=== PATIENT | male | born 1940 | race Caucasian/White ===

== ENCOUNTER 2017-05-11 09:15 | Inpatient (IN) | payer OTHER ==
[~2017-05-11] VITALS: Ht 172.7 cm; Wt 85.0 kg
[~2017-05-11 09:15] MED LIST: ASPI-664 PO; ATOR20TA38 PO; METO25TA7 PO; OMEP20CA16 PO; PANT40TA4 PO; TAMS-14 PO
[2017-05-11] MEDS ORDERED: NITROGLYCERIN 2% 1 GM OINT PKT TD STA (09:40)
[2017-05-11] MEDS ORDERED: ASPIRIN 325 MG TAB PO STA (09:40)
[2017-05-11 10:11] LABS: BASOPHILS % 0.3 % (0.0-2.0); EOSINOPHILS # 0.1 10^3/ul (0.0-0.5); EOSINOPHILS % 0.4 % (0.0-7.0); HEMATOCRIT 41.3 % (42.0-52.0); HEMOGLOBIN 13.9 g/dl (14.0-18.0); LYMPHOCYTES # 1.1 10^3/ul (0.8-2.9); LYMPHOCYTES % 8.8 % (15.0-51.0); MEAN CORPUSCULAR HEMOGLOBIN 30.3 pg (29.0-33.0); MEAN CORPUSCULAR HGB CONC 33.7 g/dl (32.0-37.0); MONOCYTE # 0.8 10^3/ul (0.3-0.9); MONOCYTES % 6.4 % (0.0-11.0); NEUTROPHIL # 10.6 10^3/ul (1.6-7.5); NEUTROPHILS % 82.2 % (39.0-77.0); PLATELET COUNT 230 10^3/UL (140-415); RED BLOOD COUNT 4.59 10^6/ul (4.70-6.10); RED CELL DISTRIBUTION WIDTH 15.7 % (11.5-14.5); WHITE BLOOD COUNT 12.9 10^3/ul (4.8-10.8)
[2017-05-11 10:26] LABS: INR 0.99; PROTIME 13.1 Sec (12.2-14.2)
[2017-05-11 10:27] LABS: PARTIAL THROMBOPLASTIN TIME 30.2 Sec (25.0-35.0)
[2017-05-11 10:28] LABS: ALANINE AMINOTRANSFERASE 90 IU/L (13-69); ALBUMIN 3.9 g/dl (3.3-4.9); ALBUMIN/GLOBULIN RATIO 1.44; ALKALINE PHOSPHATASE 76 IU/L (42-121); ANION GAP 14 (8-16); ASPARTATE AMINO TRANSFERASE 44 IU/L (15-46); BILIRUBIN,INDIRECT 0.6 mg/dl (0-1.1); BILIRUBIN,TOTAL 0.6 mg/dl (0.2-1.3); BLOOD UREA NITROGEN 25 mg/dl (7-20); CALCIUM 8.6 mg/dl (8.4-10.2); CARBON DIOXIDE 24 mmol/L (21-31); CHLORIDE 96 mmol/L (97-110); CREATININE 0.91 mg/dl (0.61-1.24); GLUCOSE 160 mg/dl (70-220); POTASSIUM 4.7 mmol/L (3.5-5.1); SODIUM 129 mmol/L (135-144); TOTAL PROTEIN 6.6 g/dl (6.1-8.1)
[2017-05-11 10:40] LABS: B-TYPE NATRIURETIC PEPTIDE 5670 PG/ML (0-450)
[2017-05-11 10:43] LABS: TROPONIN-I < 0.012 ng/ml (0.00-0.12)
--- NOTE | 2017-05-11 10:52 | RADRPT ---
PROCEDURE: XR Chest. CLINICAL INDICATION: Chest pain TECHNIQUE: Single frontal view of the chest was obtained COMPARISON: 02/16/2014 FINDINGS: Enlargement of the cardiac silhouette is again seen. Calcification in the aortic arch. There is minimal prominence of the lung interstitium likely minimal chronic changes. ECG leads proje cted over the chest. Patchy densities at lung bases could be secondary to atelectasis and/or infiltr ates. There is no definite pleural effusion or pneumothorax. IMPRESSION: Enlargement of cardiac silhouette again seen. Patchy densities at lung bases could be secondary to atelectasis and/or infiltrates. Please see above. RPTAT: HJES .Teodoro Camilo MD, Date Time Electronically viewed and signed by .Teodoro Camilo MD, on 05/11/2017 10:52 .S/
--- NOTE | 2017-05-11 12:00 | ERA ---
ER Documentation Chief Complaint Date/Time DATE: 05/11/17 TIME: 11:55 Chief Complaint chest pain x 8 days HPI This is 76-year-old male is complaining of chest pain for the past week. He says when he walks he gets substernal chest pressure that radiates up his left neck and down his left arm with some shortness of breath. He said over the past week is getting more frequent and lasting longer. He states he is here today because the pain is chest not going away when he is resting like he usually would over the past week. No cough fever back pain no abdominal pain no syncope palpitations no history of any cardiac issues in the past including arrhythmia. Currently he says his chest pain-free. ROS All systems reviewed and are negative except as per history of present illness. Medications Home Meds Reported Medications Omeprazole* (Omeprazole*) 20 Mg Capsule.dr, 20 MG PO DAILY 02/16/14 Tamsulosin Hcl* (Flomax*) 0.4 Mg Cap.er.24h, 0.4 MG PO HS, CAP 02/16/14 Pantoprazole (Protonix) 40 Mg Tabec, 40 MG PO DAILY, TAB 02/16/14 Metoprolol Succinate* (Toprol XL*) 25 Mg Tab.sr.24h, 25 MG PO DAILY, TAB 02/16/14 Aspirin* (Aspirin* EC) 81 Mg Tablet.dr, 81 MG PO DAILY 02/16/14 Atorvastatin Calcium* (Atorvastatin Calcium*) 20 Mg Tablet, 20 MG PO DAILY, TAB 02/16/14 Allergies Allergies: Coded Allergies: No Known Allergy (Verified , 02/16/14) PMhx/Soc History of Surgery: Yes (2 HERNIA SURGERIES, 1 HEMORRHOID LAST YEAR, angiogram) Anesthesia Reaction: No Hx Neurological Disorder: No Hx Respiratory Disorders: No Hx Cardiac Disorders: Yes (HTN, HYPERCHOLESTEROLEMIA, ANGINA, ) Hx Psychiatric Problems: No Hx Miscellaneous Medical Probl: Yes (pre dm) Hx Alcohol Use: No Hx Substance Use: No Hx Tobacco Use: No Smoking Status: Never smoker FmHx Family History: No coronary disease Physical Exam Vitals Vital Signs Date Time Temp Pulse Resp B/P Pulse Ox O2 Delivery O2 Flow Rate FiO2 05/11/17 09:59 76 20 146/90 97 Room Air 05/11/17 09:20 97.9 78 20 174/99 95 Physical Exam Const: Well-developed, well-nourished Head: Atraumatic, normocephalic Eyes: Normal Conjunctiva, PERRLA, EOMI, normal sclera, no nystagmus ENT: Normal External Ears, Nose and Mouth, moist mucus membranes. Neck: Full range of motion. No meningismus, no lymphadenopathy. Resp: Clear to auscultation bilaterally in the upper lung isbell, lower lung isbell have rhonchi Cardio: Irregular rhythm, , no murmurs, S1 S2 present Abd: Soft, non tender x 4, non distended. Normal bowel sounds, no guarding or rebound, no pulsitile abdominal masses or bruits Skin: No petechiae or rashes, no ecchymosis , no maculopapular rash Back: No midline or flank tenderness Ext: No cyanosis, or edema, FROM x 4, normal inspection, neurovascularly intact x 4 Neur: Awake and alert, STR 5/5 x 4, sensation intact x 4, no focal findings, cerebellum intact Psych: Normal Mood and Affect Result Diagram: 05/11/1795405/11/17 0955 Results 24 hrs Laboratory Tests Test 05/11/17 09:55 White Blood Count 12.910^3/ul Red Blood Count 4.5910^6/ul Hemoglobin 13.9g/dl Hematocrit 41.3% Mean Corpuscular Volume 90.0fl Mean Corpuscular Hemoglobin 30.3pg Mean Corpuscular Hemoglobin Concent 33.7g/dl Red Cell Distribution Width 15.7% Platelet Count 87393^3/UL Mean Platelet Volume 10.0fl Neutrophils % 82.2% Lymphocytes % 8.8% Monocytes % 6.4% Eosinophils % 0.4% Basophils % 0.3% Nucleated Red Blood Cells % 0.0/100WBC Neutrophils # 10.610^3/ul Lymphocytes # 1.110^3/ul Monocytes # 0.810^3/ul Eosinophils # 0.110^3/ul Basophils # 0.010^3/ul Nucleated Red Blood Cells # 0.010^3/ul Prothrombin Time 13.1Sec Prothrombin Time Ratio 1.0 INR International Normalized Ratio 0.99 Activated Partial Thromboplast Time 30.2Sec Sodium Level 129mmol/L Potassium Level 4.7mmol/L Chloride Level 96mmol/L Carbon Dioxide Level 24mmol/L Anion Gap 14 Blood Urea Nitrogen 25mg/dl Creatinine 0.91mg/dl Glucose Level 160mg/dl Calcium Level 8.6mg/dl Total Bilirubin 0.6mg/dl Direct Bilirubin 0.00mg/dl Indirect Bilirubin 0.6mg/dl Aspartate Amino Transf (AST/SGOT) 44IU/L Alanine Aminotransferase (ALT/SGPT) 90IU/L Alkaline Phosphatase 76IU/L Troponin I < 0.012ng/ml B-Type Natriuretic Peptide 5670PG/ML Total Protein 6.6g/dl Albumin 3.9g/dl Globulin 2.70g/dl Albumin/Globulin Ratio 1.44 Current Medications Medications (Trade) Dose Ordered Sig/Sharmila Route PRN Reason Start Time Stop Time Status Last Admin Dose Admin Aspirin (Aspirin) 325 mg ONCE STAT PO 05/11/17 09:40 05/11/17 09:41 DC 05/11/17 09:52 Nitroglycerin (Nitroglycerin 2% Oint) 1 inch ONCE STAT TD 05/11/17 09:40 05/11/17 09:41 DC 05/11/17 09:52 Procedures/MDM EKG: Rate/Rhythm: Atrial fibrillation with a heart rate of 79, right axis deviation, inverted T waves in leads V4 5 and 6 QRS, ST, QT: NORMAL TX, QRS, QT] Impression: Atrial fibrillation PROCEDURE: XR Chest. CLINICAL INDICATION: Chest pain TECHNIQUE: Single frontal view of the chest was obtained COMPARISON: 02/16/2014 FINDINGS: Enlargement of the cardiac silhouette is again seen. Calcification in the aortic arch. There is minimal prominence of the lung interstitium likely minimal chronic changes. ECG leads projected over the chest. Patchy densities at lung bases could be secondary to atelectasis and/or infiltrates. There is no definite pleural effusion or pneumothorax. IMPRESSION: Enlargement of cardiac silhouette again seen. Patchy densities at lung bases could be secondary to atelectasis and/or infiltrates. Please see above. RPTAT: HJES .Teodoro Camilo MD, MD Date Time Electronically viewed and signed by .Teodoro Camilo MD, MD on 05/11/2017 10:52 .S/ CC: MARGOTH UREÑA DO Patient to have new onset A. fib will cover with 1 dose of Lovenox subcu Patient's symptoms are concerning for cardiac cause will require inpatient workup and continuous monitoring. Further w/u for ischemia, arrhythmia, PE or dissection will be deferred to the inpatient team. Accepting Care Team: Current data and ongoing care discussed. Time: Time of admission Primary Provider: [XOXOXO] Consulting: [XOXOXO] Outstanding Data: none Departure Diagnosis: Primary Impression: Chest pain Qualified Code: R07.9 - Chest pain, unspecified type Additional Impression: Atrial fibrillation Qualified Code: I48.91 - Atrial fibrillation, unspecified type Condition: Stable MARGOTH UREÑA DO May 11, 2017 12:00
[2017-05-11] MEDS ORDERED: ACETAMINOPHEN 325 MG TAB PO PRN (12:30)
[2017-05-11] MEDS ORDERED: ONDANSETRON 4 MG INJ IV PRN (12:30)
[2017-05-11] MEDS ORDERED: ENOXAPARIN 80 MG/0.8 ML SYG SC SCH (12:30)
[2017-05-11] MEDS ORDERED: FUROSEMIDE 40 MG INJ IV ONE (13:30)
[2017-05-11] MEDS ORDERED: METO50TA16 PO (13:40)
[2017-05-11] MEDS ORDERED: OLME1TAB5 PO (13:42)
[2017-05-11] MEDS ORDERED: INDO25CA25 PO (13:44)
[2017-05-11] MEDS ORDERED: SIMV20TA PO (13:44)
[2017-05-11] MEDS: LOSARTAN 25 MG TAB PO SCH (14:00)
--- NOTE | 2017-05-11 14:04 | HP ---
Date/Time of Note Date/Time of Note DATE: 05/11/17 TIME: 13:51 Assessment/Plan VTE Prophylaxis VTE Prophylaxis Intervention: LMWH Lines/Catheters IV Catheter Type (from Nrs): Saline Lock Assessment/Plan Chief Complaint/Hosp Course 76 yo male darion h/o hypertesnion and BPH who presents with subacute onset of asthma and exertional dyspnea. Bedside TTE shows likely reduced EF. EKG shows Atrial fibrillation with normal rate. Labs show hyponatremia. Symptoms concerning for angina and CHF Anginal: - This is not an ACS given chronic stable symptoms - Will start aspirin and statin - Cards consult for consideration of stress vs cath Acute systolic CHF exac: - Will initiated diurese now, 40 IV lasix. Only mildly overloaded on exam - Will confirm with formal TTE - Neurohormonal blockade pending assessment of EF New diagnosis of Atrial Fibrillation - Currently rate is in 70s so will hold off on BB for now - Will start Eliquis for AC Hypertension - He had been taking olmesartan/HCTZ combination pill prescribed in [place] as an outpatient which I will discontinue as will likely need more potent diuretic Hyponatremia: - Unclear etiology - Trend Na, should improve with diuresis - Check urine lytes BPH: - Continue flomax Problems: HPI/ROS Admit Date/Time Admit Date/Time Hx of Present Illness This is a 76-year-old male with a reported history of hypertension and BPH as well as to 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 Patient has recently arrived from [place] and his exact medical history is unclear. He describes over the last few weeks having developed chest pressure that occurs with exertion and radiates through his left arm. He also has developed symptomatic shortness of breath which mainly occurs during exertion but also occurs at rest when in supine. His orthopnea has developed causing him to sleep upright on 2 pillows. He stresses that these symptoms have gradually come about and are not acutely changed today. He recently established care with the PCP and was said to to visit a pediatric clinical nurse specialist however he having trouble with prior authorization so decided to come to the hospital. In the emergency room he was found to be in atrial fibrillation but he has never heard of this before. His daughter who is at bedside has noticed that he has become less active and appears to be more winded when he moves around the house or walks. He denies feeling palpitations or any chest pain at rest PMH/Family/Social Past Medical History Medical History: hypertension Past Surgical History Past Surgical Hx: noncontributory Family History Significant Family History: no pertinent family hx Social History Alcohol Use: none Smoking Status: Never smoker Drug Use: none Exam/Review of Systems Vital Signs Vitals Vital Signs Date Time Temp Pulse Resp B/P Pulse Ox O2 Delivery O2 Flow Rate FiO2 05/11/17 09:59 76 20 146/90 97 Room Air 05/11/17 09:20 97.9 Exam Exam On exam he appears well and comfortable he is an elderly man resting in bed in no distress. He is alert and oriented 3. His cardiac exam is notable for an irregular rhythm with a normal rates he has very elevated jugular venous distention to his ear. His pulmonary exam is notable for trace bibasilar crackles. His abdominal exam is slightly distended with positive hepatojugular reflux. His abdomen is nontender. There is trace edema in his bilateral lower extremities. BNP Laboratory Tests Test 05/11/17 09:55 White Blood Count 12.910^3/ul Red Blood Count 4.5910^6/ul Hemoglobin 13.9g/dl Hematocrit 41.3% Mean Corpuscular Volume 90.0fl Mean Corpuscular Hemoglobin 30.3pg Mean Corpuscular Hemoglobin Concent 33.7g/dl Red Cell Distribution Width 15.7% Platelet Count 69141^3/UL Mean Platelet Volume 10.0fl Neutrophils % 82.2% Lymphocytes % 8.8% Monocytes % 6.4% Eosinophils % 0.4% Basophils % 0.3% Nucleated Red Blood Cells % 0.0/100WBC Neutrophils # 10.610^3/ul Lymphocytes # 1.110^3/ul Monocytes # 0.810^3/ul Eosinophils # 0.110^3/ul Basophils # 0.010^3/ul Nucleated Red Blood Cells # 0.010^3/ul Prothrombin Time 13.1Sec Prothrombin Time Ratio 1.0 INR International Normalized Ratio 0.99 Activated Partial Thromboplast Time 30.2Sec Sodium Level 129mmol/L Potassium Level 4.7mmol/L Chloride Level 96mmol/L Carbon Dioxide Level 24mmol/L Anion Gap 14 Blood Urea Nitrogen 25mg/dl Creatinine 0.91mg/dl Glucose Level 160mg/dl Calcium Level 8.6mg/dl Total Bilirubin 0.6mg/dl Direct Bilirubin 0.00mg/dl Indirect Bilirubin 0.6mg/dl Aspartate Amino Transf (AST/SGOT) 44IU/L Alanine Aminotransferase (ALT/SGPT) 90IU/L Alkaline Phosphatase 76IU/L Troponin I < 0.012ng/ml B-Type Natriuretic Peptide 5670PG/ML Total Protein 6.6g/dl Albumin 3.9g/dl Globulin 2.70g/dl Albumin/Globulin Ratio 1.44 Current Medications Medications (Trade) Dose Ordered Sig/Sharmila Route PRN Reason Start Time Stop Time Status Last Admin Dose Admin Aspirin (Aspirin) 325 mg ONCE STAT PO 05/11/17 09:40 05/11/17 09:41 DC 05/11/17 09:52 325 MG Nitroglycerin (Nitroglycerin 2% Oint) 1 inch ONCE STAT TD 05/11/17 09:40 05/11/17 09:41 DC 05/11/17 09:52 1 INCH Enoxaparin Sodium (Lovenox) 80 mg ONCE SC 05/11/17 12:30 05/11/17 12:28 80 MG Ondansetron HCl (Zofran Inj) 4 mg ER BRIDGE PRN IV NAUSEA AND/OR VOMITING 05/11/17 12:30 05/12/17 12:29 Acetaminophen (Tylenol Tab) 650 mg ER BRIDGE PRN PO MILD PAIN/FEVER 05/11/17 12:30 05/12/17 12:29 Furosemide (Lasix) 40 mg ONCE ONCE IV 05/11/17 13:30 05/11/17 13:31 DC 05/11/17 13:19 40 MG Labs Result Diagram: 05/11/17 0955 05/11/17 0955 Medications Medications Current Medications Enoxaparin Sodium (Lovenox) 80 mg ONCE SC Last administered on 05/11/17t 12:28 ; Admin Dose 80 MG; Start 05/11/17 at 12:30 AMISHA LOAIZA MD May 11, 2017 14:01
--- NOTE | 2017-05-11 17:05 | RADRPT ---
Echocardiogram Report ADDENDUM Patient Name: MOHAMUD ESTRADA Gender: Male Date: 1940 Study Date: 11-May-2017 [place] Attendant: [facility] Location: -5 Ref. Physician: AMISHA LOAIZA Quality: Adequate Procedures: Transthoracic echocardiogram with complete 2D, M-Mode, and doppler examination. Indications: Congestive Heart Failure. 2D/M Mode Doppler Measurement Value Normal Ranges Measurement Value Normal Ranges LVIDd 2D 4.4 3.5 - 5.6 cm AV Peak Mason 1.1 m/sec LVIDs 2D 3.4 2.1 - 4.1 cm AV Peak PG 5.0 mmHg FS 2D 22.5 % LVOT Peak Mason 0.8 m/sec LVPWd 2D 1.5 0.6 - 1.1 cm LVOT Peak PG 3.0 mmHg IVSd 2D 1.5 0.6 - 1.1 cm MV E Peak Mason 0.7 m/sec IVS/LVPW 2D 1.0 AoR Diam 2D 2.6 2.0 - 3.7 cm LA/Ao 2D 2 0 - 1 EDV 2D 87.5 cm3 ESV 2D 40.7 cm3 LA Dimen 2D 4.8 2.3 - 4.0 cm Findings Left Ventricle: Normal left ventricular cavity size. Moderate concentric left ventricular hypertrophy. Mild left ventricular systolic dysfunction. Ejection fraction is visually estimated at 45 %. Abnormal Diastolic Function. Right Ventricle: Normal right ventricular size. Normal right ventricular systolic function. Left Atrium: There is moderate enlargement of left atrium. Right Atrium: The right atrium is normal in size. Mitral Valve: Mild mitral leaflet calcification. Mild mitral annular calcification. Trace mitral regurgitation. Aortic Valve: Normal appearance of the aortic valve. No significant aortic stenosis or insufficiency. Tricuspid Valve: Normal appearance of the tricuspid valve. Unable to obtain RVSP due to minimal presence of tricuspid regurgitation. There is trace tricuspid regurgitation. Pulmonic Valve: Pulmonic valve not well visualized. There is trace pulmonic regurgitation. Pericardium: Normal pericardium with no significant pericardial effusion. Aorta: Normal aortic root. IVC: Normal size and poor respiratory collapse consistent with elevated right atrial pressure. Conclusions 1.Normal left ventricular systolic function. Normal left ventricular cavity size. Moderate concentric left ventricular hypertrophy. Ejection fraction is visually estimated at 45 %. Abnormal Diastolic Function. 2.Normal right ventricular size. Normal right ventricular systolic function. 3.Normal appearance of the aortic valve. No significant aortic stenosis or insufficiency. 4.Normal appearance of the tricuspid valve. Unable to obtain RVSP due to minimal presence of tricuspid regurgitation. There is trace tricuspid regurgitation. 5.Pulmonic valve not well visualized. There is trace pulmonic regurgitation. 6.Normal pericardium with no significant pericardial effusion. Electronically Signed By: Leo Steiner 11-May-2017 17:07:36 -0700 [ADDENDUM] Patient Name: MOHAMUD ESTRADA Study Date: 11-May-2017 [id number]
[2017-05-11 18:00] VITALS: BP 135/82; PULSE 85; RESP 16
[2017-05-11] MEDS ORDERED: RIVAROXABAN 20 MG TABLET PO SCH (18:00)
[2017-05-11 18:04] VITALS: PULSE 78
[2017-05-11 20:22] VITALS: PULSE 79
[2017-05-11 20:23] VITALS: Ht 172.7 cm; Wt 85.0 kg
[2017-05-11] MEDS: RIVAROXABAN 20 MG TABLET PO SCH (20:55)
[2017-05-11] MEDS: ATORVASTATIN 40 MG TAB PO SCH (20:55)
[2017-05-11] MEDS: RANITIDINE 150 MG TAB PO SCH (21:00)
[2017-05-12] VITALS (13 sets, daily range): BP systolic 128–151; BP diastolic 55–91; PULSE 72–86; RESP 16–20
[2017-05-12 08:02] LABS: BASOPHILS % 0.4 % (0.0-2.0); EOSINOPHILS # 0.1 10^3/ul (0.0-0.5); EOSINOPHILS % 0.6 % (0.0-7.0); HEMATOCRIT 41.6 % (42.0-52.0); HEMOGLOBIN 13.5 g/dl (14.0-18.0); LYMPHOCYTES # 1.4 10^3/ul (0.8-2.9); LYMPHOCYTES % 14.2 % (15.0-51.0); MEAN CORPUSCULAR HEMOGLOBIN 29.6 pg (29.0-33.0); MEAN CORPUSCULAR HGB CONC 32.5 g/dl (32.0-37.0); MEAN CORPUSCULAR VOLUME 91.2 fl (82.0-101.0); MEAN PLATELET VOLUME 10.1 fl (7.4-10.4); MONOCYTE # 0.9 10^3/ul (0.3-0.9); MONOCYTES % 9.2 % (0.0-11.0); NEUTROPHIL # 6.9 10^3/ul (1.6-7.5); NEUTROPHILS % 73.1 % (39.0-77.0); PLATELET COUNT 229 10^3/UL (140-415); RED BLOOD COUNT 4.56 10^6/ul (4.70-6.10); RED CELL DISTRIBUTION WIDTH 16.2 % (11.5-14.5); WHITE BLOOD COUNT 9.5 10^3/ul (4.8-10.8)
[2017-05-12] MEDS: LOSARTAN 25 MG TAB PO SCH (08:19)
[2017-05-12] MEDS ORDERED: FUROSEMIDE 40 MG INJ IV SCH (09:00)
[2017-05-12 09:11] LABS: ALBUMIN 3.4 g/dl (3.3-4.9); ALBUMIN/GLOBULIN RATIO 1.36; BILIRUBIN,INDIRECT 0.7 mg/dl (0-1.1); BILIRUBIN,TOTAL 0.7 mg/dl (0.2-1.3); CALCIUM 8.8 mg/dl (8.4-10.2); CREATININE 0.99 mg/dl (0.61-1.24); POTASSIUM 4.5 mmol/L (3.5-5.1); TOTAL PROTEIN 5.9 g/dl (6.1-8.1)
--- NOTE | 2017-05-12 10:46 | CONS ---
Date/Time of Note Date/Time of Note DATE: 05/12/17 TIME: 10:41 Assessment/Plan Assessment/Plan Additional Assessment/Plan Atrial fibrillation rate controlled Acute systolic heart failure hypertension Pre diabetes dyslipidemia Hypothyroidism He has been ruled out for ACS with serial negative troponin's and has diuresed well with lasix Echo shows EF 45% Decreased Lasix 20mg daily Continue Metoprolol Continue Xarelto Continue Losartan Continue GI and DVT Prophylaxis Scheduled for stress test tomorrow. NPO midnight Consultation Date/Type/Reason Admit Date/Time May 11, 2017 at 12:06 Initial Consult Date Exam/Review of Systems Vital Signs Vitals Vital Signs Date Time Temp Pulse Resp B/P Pulse Ox O2 Delivery O2 Flow Rate FiO2 05/12/17 08:13 72 05/12/17 07:33 97.6 16 151/90 96 05/11/17 18:00 Room Air Intake and Output 05/11/17 05/11/17 05/12/17 15:00 23:00 07:00 Intake Total 240 ml 200 ml Output Total 1400 ml 1250 ml 600 ml Balance -1400 ml -1010 ml -400 ml Exam Constitutional: alert, oriented Head: atraumatic, normocephalic Respiratory: clear to auscultation Cardiovascular: irregular rhythm Gastrointestinal: nl liver, spleen, non-tender, soft Extremities: normal pulses Results Result Diagram: 05/12/17 0727 05/12/17 0727 Results 24 hrs Laboratory Tests Test 05/11/17 15:30 05/12/17 01:02 05/12/17 07:27 Urine Osmolality 245 L Urine Random Sodium 101 H Troponin I < 0.012 < 0.012 White Blood Count 9.5 # Red Blood Count 4.56 L Hemoglobin 13.5 L Hematocrit 41.6 L Mean Corpuscular Volume 91.2 Mean Corpuscular Hemoglobin 29.6 Mean Corpuscular Hemoglobin Concent 32.5 Red Cell Distribution Width 16.2 H Platelet Count 229 Mean Platelet Volume 10.1 Neutrophils % 73.1 Lymphocytes % 14.2 L Monocytes % 9.2 Eosinophils % 0.6 Basophils % 0.4 Nucleated Red Blood Cells % 0.0 Neutrophils # 6.9 Lymphocytes # 1.4 Monocytes # 0.9 Eosinophils # 0.1 Basophils # 0.0 Nucleated Red Blood Cells # 0.0 Sodium Level 137 Potassium Level 4.5 Chloride Level 96 L Carbon Dioxide Level 27 Anion Gap 19 H Blood Urea Nitrogen 29 H Creatinine 0.99 Glucose Level 96 # Calcium Level 8.8 Total Bilirubin 0.7 Direct Bilirubin 0.00 Indirect Bilirubin 0.7 Aspartate Amino Transf (AST/SGOT) 36 Alanine Aminotransferase (ALT/SGPT) 74 H Alkaline Phosphatase 69 Total Protein 5.9 L Albumin 3.4 Globulin 2.50 Albumin/Globulin Ratio 1.36 Medications Medications Current Medications Losartan Potassium (Cozaar) 25 mg DAILY PO Last administered on 05/12/17 08:19 ; Admin Dose 25 MG; Start 05/11/17 at 14:00 Atorvastatin Calcium (Lipitor) 40 mg HS PO Last administered on 05/11/17 20:55 ; Admin Dose 40 MG; Start 05/11/17 at 21:00 Furosemide (Lasix) 40 mg DAILY IV Last administered on 05/12/17 08:19; Admin Dose 40 MG; Start 05/12/17 at 09:00 Ranitidine HCl (Zantac) 150 mg HS PO ; Start 05/11/17 at 21:00 Metoprolol Tartrate (Lopressor) 25 mg BID PO ; Start 05/12/17 at 10:30 BILL YEAGER M.D. May 12, 2017 10:46
[2017-05-12] MEDS ORDERED: FUROSEMIDE 40 MG/4 ML CUP PO SCH (11:00)
[2017-05-12] MEDS: METOPROLOL 25 MG TAB PO SCH ×2 (12:10→21:07)
--- NOTE | 2017-05-12 12:22 | CONS ---
DATE OF ADMISSION: 05/11/2017 DATE OF CONSULTATION: 05/12/2017 REASON FOR CONSULTATION: Atrial fibrillation with chest pain. HISTORY OF PRESENT ILLNESS: Patient is a 76-year-old gentleman who comes in with shortness of breath associated with palpitation and dizziness. He also complains of substernal chest pain. Denies orthopnea or PND. Denies syncope. Denies nausea, vomiting. Denies fever, chills or rigors. PAST MEDICAL HISTORY: 1. Atrial fibrillation. 2. Hypertension. 3. Dyslipidemia. 4. Pre-diabetes. SOCIAL HISTORY: No smoking, alcohol, or recreational drug. ALLERGIES: NONE. MEDICATION: Include losartan, Lasix, Xarelto, Lipitor, ranitidine. REVIEW OF SYSTEMS: Unremarkable except as mentioned in HPI. PHYSICAL EXAMINATION: VITAL SIGNS: Temperature is 97.6, heart rate of 85, blood pressure 135/82 mmHg, breathing at 16, saturating 97 percent on room air. GENERAL: Patient is awake, alert, oriented, in no apparent distress. NECK: No JVD or carotid bruit. HEART: Irregularly irregular rhythm. No murmur, rub, or gallop. CHEST: Clear to auscultation. ABDOMEN: Soft. Bowel sounds are present. There is no organomegaly. EXTREMITIES: Trace pedal edema bilaterally. DIAGNOSTIC DATA: Review of 12 lead EKG shows atrial fibrillation with a ventricular rate of 79 beats per minute with normal QRS and prolonged QT interval, nonspecific ST-T wave changes with T- wave inversion in 1, aVL, and V2 through V6. Chest x-ray shows cardiomegaly with calcification of the aortic arch, no congestion with infiltrates. LABORATORY: WBC 12.9, hemoglobin 13.9, hematocrit 41.3 with a platelet of 230,000. Sodium 139, potassium 4.7, chloride 96, CO2 24, BUN 25, creatinine 0.91. Troponin x2 negative. BNP 5670. IMPRESSION AND PLAN: A 76-year-old gentleman with: 1. Atypical chest pain. 2. Dyspnea. 3. Atrial fibrillation. 4. Acute exacerbation of systolic heart failure. 5. Hypertension. 6. Dyslipidemia. 7. Prediabetes. 8. Hyponatremia. Review of 12 lead EKG shows atrial fibrillation with rate control with nonspecific ST-T wave changes. He has been ruled out for acute coronary syndrome and negative troponins. He has elevated BNP. RECOMMENDATIONS: 1. Would continue gentle diuresis with Lasix. 2. Started on low-dose metoprolol. 3. Continue losartan. 4. Continue Xarelto for anticoagulation. 5. Continue Lipitor. 6. Echocardiogram to assess systolic function and to rule out for pulmonary hypertension and pericardial disease. Dictated By: Leo Steiner MD /tom/yennifer /Document#: [id number]
[2017-05-12] MEDS: RIVAROXABAN 20 MG TABLET PO SCH (16:59)
--- NOTE | 2017-05-12 17:08 | PN ---
Date/Time of Note Date/Time of Note DATE: 05/12/17 TIME: 17:04 Assessment/Plan VTE Prophylaxis VTE Prophylaxis Intervention: LMWH, other Lines/Catheters IV Catheter Type (from Nrs): Peripheral IV Assessment/Plan Chief Complaint/Hosp Course 76 yo male with h/o hypertesnion and BPH who presents with acute diastolic CHF exacerbation and stable angina Angina: - This is not an ACS given chronic stable symptoms - Will start aspirin and statin - Stress test on Saturday Acute diastolic CHF exac: - S/p diuresis now euvolemic. Continue PO maintenance lasix 20 Permanent Atrial Fibrillation - Continue low dose metoprolol, rate is controlled - Continue Eliquis for AC Hypertension - He had been taking olmesartan/HCTZ combination pill prescribed in [place] as an outpatient which I will discontinue as will likely need more potent diuretic - Losartan Hyponatremia: - Now resolved BPH: - Continue flomax Discharge likely tomorrow following stress if normal Problems: Subjective 24 Hr Interval Summary Free Text/Dictation Patient effectievly diuresed, now feeling better from breathing perspective Able to lie flat and ambulate without dyspnea No further CP Exam/Review of Systems Vital Signs Vitals Vital Signs Date Time Temp Pulse Resp B/P Pulse Ox O2 Delivery O2 Flow Rate FiO2 05/12/17 16:23 81 05/12/17 15:04 97.4 20 142/84 95 Room Air Intake and Output 05/11/17 05/11/17 05/12/17 14:59 22:59 06:59 Intake Total 240 ml 200 ml Output Total 1400 ml 1250 ml 600 ml Balance -1400 ml -1010 ml -400 ml Exam JVP now normal Trace pedal edema b/l Patient apperas comfortable, NAD Breathing nonlabored, lungs clear Results Result Diagram: 05/12/17 0727 05/12/17 0727 Results 24 hrs Laboratory Tests Test 05/12/17 01:02 05/12/17 07:27 05/12/17 12:25 Troponin I < 0.012 < 0.012 < 0.012 White Blood Count 9.5 # Red Blood Count 4.56 L Hemoglobin 13.5 L Hematocrit 41.6 L Mean Corpuscular Volume 91.2 Mean Corpuscular Hemoglobin 29.6 Mean Corpuscular Hemoglobin Concent 32.5 Red Cell Distribution Width 16.2 H Platelet Count 229 Mean Platelet Volume 10.1 Neutrophils % 73.1 Lymphocytes % 14.2 L Monocytes % 9.2 Eosinophils % 0.6 Basophils % 0.4 Nucleated Red Blood Cells % 0.0 Neutrophils # 6.9 Lymphocytes # 1.4 Monocytes # 0.9 Eosinophils # 0.1 Basophils # 0.0 Nucleated Red Blood Cells # 0.0 Sodium Level 137 Potassium Level 4.5 Chloride Level 96 L Carbon Dioxide Level 27 Anion Gap 19 H Blood Urea Nitrogen 29 H Creatinine 0.99 Glucose Level 96 # Calcium Level 8.8 Total Bilirubin 0.7 Direct Bilirubin 0.00 Indirect Bilirubin 0.7 Aspartate Amino Transf (AST/SGOT) 36 Alanine Aminotransferase (ALT/SGPT) 74 H Alkaline Phosphatase 69 Total Protein 5.9 L Albumin 3.4 Globulin 2.50 Albumin/Globulin Ratio 1.36 Medications Medications Current Medications Losartan Potassium (Cozaar) 25 mg DAILY PO Last administered on 05/12/17 08:19 ; Admin Dose 25 MG; Start 05/11/17 at 14:00 Atorvastatin Calcium (Lipitor) 40 mg HS PO Last administered on 05/11/17 20:55 ; Admin Dose 40 MG; Start 05/11/17 at 21:00 Ranitidine HCl (Zantac) 150 mg HS PO ; Start 05/11/17 at 21:00 Metoprolol Tartrate (Lopressor) 25 mg BID PO Last administered on 05/12/17 12: 10; Admin Dose 25 MG; Start 05/12/17 at 10:30 Furosemide (Lasix) 20 mg DAILY PO Last administered on 05/12/17 12:11; Admin Dose 20 MG; Start 05/12/17 at 11:00 AMISHA LOAIZA MD May 12, 2017 17:08
[2017-05-12] MEDS: RANITIDINE 150 MG TAB PO SCH (21:06)
[2017-05-12] MEDS: ATORVASTATIN 40 MG TAB PO SCH (21:08)
[2017-05-13] VITALS (9 sets, daily range): BP systolic 121–141; BP diastolic 69–87; PULSE 78–118; RESP 16–18
[2017-05-13 07:15] LABS: BASOPHIL # 0.1 10^3/ul (0.0-0.1); BASOPHILS % 0.6 % (0.0-2.0); EOSINOPHILS # 0.1 10^3/ul (0.0-0.5); EOSINOPHILS % 0.9 % (0.0-7.0); HEMATOCRIT 43.2 % (42.0-52.0); HEMOGLOBIN 14.2 g/dl (14.0-18.0); LYMPHOCYTES # 1.5 10^3/ul (0.8-2.9); LYMPHOCYTES % 16.4 % (15.0-51.0); MEAN CORPUSCULAR HEMOGLOBIN 29.8 pg (29.0-33.0); MEAN CORPUSCULAR HGB CONC 32.9 g/dl (32.0-37.0); MEAN CORPUSCULAR VOLUME 90.6 fl (82.0-101.0); MEAN PLATELET VOLUME 10.1 fl (7.4-10.4); MONOCYTE # 0.9 10^3/ul (0.3-0.9); MONOCYTES % 10.2 % (0.0-11.0); NEUTROPHIL # 6.4 10^3/ul (1.6-7.5); NEUTROPHILS % 69.8 % (39.0-77.0); PLATELET COUNT 241 10^3/UL (140-415); RED BLOOD COUNT 4.77 10^6/ul (4.70-6.10); RED CELL DISTRIBUTION WIDTH 16.2 % (11.5-14.5); WHITE BLOOD COUNT 9.1 10^3/ul (4.8-10.8)
[2017-05-13 07:51] LABS: ALBUMIN 3.7 g/dl (3.3-4.9); ALBUMIN/GLOBULIN RATIO 1.42; BILIRUBIN,INDIRECT 0.7 mg/dl (0-1.1); BILIRUBIN,TOTAL 0.7 mg/dl (0.2-1.3); CREATININE 1.02 mg/dl (0.61-1.24); POTASSIUM 4.8 mmol/L (3.5-5.1); TOTAL PROTEIN 6.3 g/dl (6.1-8.1)
[2017-05-13] MEDS ORDERED: FUROSEMIDE 40 MG/4 ML CUP PO SCH (09:00)
[2017-05-13] MEDS: LOSARTAN 25 MG TAB PO SCH (09:04)
[2017-05-13] MEDS: METOPROLOL 25 MG TAB PO SCH (09:06)
[2017-05-13] MEDS ORDERED: REGADENOSON 0.4 MG/5 ML SYG ONE (14:25)
--- NOTE | 2017-05-13 15:28 | CONS ---
Date/Time of Note Date/Time of Note DATE: 05/13/17 TIME: 15:25 Assessment/Plan Assessment/Plan Additional Assessment/Plan 1. CAD - r/o [place], stress est today 2. Atrial fibrillation rate controlled - on Xarelto now. 3. Acute systolic heart failure - Echo shows EF 45%, con't gentle diuresis. 4. Hypertension - well Rx, con't med rx 5. Pre diabetes- keep euglycemic 5. dyslipidemia - on satin now. 6. Hypothyroidism - Rx as needed. He has been ruled out for ACS with serial negative troponin's and has diuresed well with lasix Echo shows EF 45% Consultation Date/Type/Reason Admit Date/Time May 11, 2017 at 12:06 Initial Consult Date 24 HR Interval Summary Free Text/Dictation No acute change - better fluid status - Stress test today. ROS: No fever, no chills, no nausea, no vomiting, no diarrhea/constipation No recent weight changes No chest pain, no PND, no orthopnea No dizziness, blurred vision No thirst, no heat or cold intolerance Exam/Review of Systems Vital Signs Vitals Vital Signs Date Time Temp Pulse Resp B/P Pulse Ox O2 Delivery O2 Flow Rate FiO2 05/13/17 12:10 78 05/13/17 11:49 98.2 16 121/69 98 05/12/17 15:04 Room Air Intake and Output 05/12/17 05/12/17 05/13/17 15:00 23:00 07:00 Intake Total 800 ml 200 ml Balance 800 ml 200 ml Exam General: WN/WD/NAD, AOx 3 HEENT: Unicetric/atraumatic/EOMI (follow commands) NECK: JVD elevated, no thyromegaly Lymph: no lymphadenopathy HEART: regular with no S3, II/ systolic murmur at apex, PMI L LUNGS: Coarse sounds ABD: soft, NT, ND, +BS : Intact Neuro: non focal SKIN: chronic changes EXT: trace edema Results Result Diagram: 05/13/17 0643 05/13/17 0643 Results 24 hrs Laboratory Tests Test 05/12/17 18:02 05/13/17 01:05 05/13/17 06:43 Troponin I < 0.012 < 0.012 0.014 White Blood Count 9.1 Red Blood Count 4.77 Hemoglobin 14.2 Hematocrit 43.2 Mean Corpuscular Volume 90.6 Mean Corpuscular Hemoglobin 29.8 Mean Corpuscular Hemoglobin Concent 32.9 Red Cell Distribution Width 16.2 H Platelet Count 241 Mean Platelet Volume 10.1 Neutrophils % 69.8 Lymphocytes % 16.4 Monocytes % 10.2 Eosinophils % 0.9 Basophils % 0.6 Nucleated Red Blood Cells % 0.0 Neutrophils # 6.4 Lymphocytes # 1.5 Monocytes # 0.9 Eosinophils # 0.1 Basophils # 0.1 Nucleated Red Blood Cells # 0.0 Sodium Level 135 Potassium Level 4.8 Chloride Level 98 Carbon Dioxide Level 29 Anion Gap 13 Blood Urea Nitrogen 24 H Creatinine 1.02 Glucose Level 90 Calcium Level 9.0 Total Bilirubin 0.7 Direct Bilirubin 0.00 Indirect Bilirubin 0.7 Aspartate Amino Transf (AST/SGOT) 28 Alanine Aminotransferase (ALT/SGPT) 66 Alkaline Phosphatase 76 Total Protein 6.3 Albumin 3.7 Globulin 2.60 Albumin/Globulin Ratio 1.42 Medications Medications Current Medications Losartan Potassium (Cozaar) 25 mg DAILY PO Last administered on 05/13/17 09:04 ; Admin Dose 25 MG; Start 05/11/17 at 14:00 Atorvastatin Calcium (Lipitor) 40 mg HS PO Last administered on 05/12/17 21:08 ; Admin Dose 40 MG; Start 05/11/17 at 21:00 Ranitidine HCl (Zantac) 150 mg HS PO Last administered on 05/12/17 21:06; Admin Dose 150 MG; Start 05/11/17 at 21:00 Metoprolol Tartrate (Lopressor) 25 mg BID PO Last administered on 05/13/17 09: 06; Admin Dose 25 MG; Start 05/12/17 at 10:30 Furosemide (Lasix) 20 mg DAILY PO Last administered on 05/13/17 09:04; Admin Dose 20 MG; Start 05/13/17 at 09:00 KATY MATHIS MD May 13, 2017 15:28
--- NOTE | 2017-05-13 16:50 | RADRPT ---
PROCEDURE: Lexiscan myocardial perfusion study CLINICAL INDICATION: 76 -year-old patient complaining of chest pain. TECHNIQUE: Lexiscan 0.4 mg intravenously separate acquisition gated myocardial perfusion SPECT usi ng Tc 99m Myoview 30.8 mCi intravenously at stress and Tc-99m Myoview, 9.6 mCi intravenously at rest was performed using the rest/stress sequence. Poststress Myoview SPECT images were obtained in the supine position. COMPARISON: No prior studies. FINDINGS: Perfusion images reveal no evidence of perfusion defects. Lexiscan post stress gated SPECT images demonstrate no wall motion abnormalities. IMPRESSION: 1. No evidence of stress-induced ischemia. 2. No wall motion abnormalities. 3. The left ventricle ejection fraction at stress is 58%. A call report was made to Dr. Merino at 04:49 p.m. on May 13, 2017. RPTAT: HH .Viri Casillas MD, Date Time Electronically viewed and signed by .Viri Casillas MD, MD on 05/13/2017 16:50 .L/
[2017-05-13] MEDS ORDERED: LOSA25TA2 PO (17:24)
[2017-05-13] MEDS ORDERED: FURO-110 PO (17:24)
[2017-05-13] MEDS ORDERED: RIVA20TA PO (17:24)
--- NOTE | 2017-05-13 17:25 | PDOCDIS ---
Discharge Instructions CONDITION Patient Condition: Good HOME CARE INSTRUCTIONS: Diet Instructions: Modified Fat ACTIVITY: Activity Restrictions: No Restrictions FOLLOW UP/APPOINTMENTS Follow-up Plan F/U WITH YOUR PCP IN 1-2 WEEKS ELIER WADE May 13, 2017 17:25
--- NOTE | 2017-05-13 17:38 | DS ---
Date/Time of Note Date/Time of Note DATE: 05/13/17 TIME: 17:32 Discharge Summary Admission/Discharge Info Admit Date/Time May 11, 2017 at 12:06 Discharge Date/Time May 13, 2017 Discharge Diagnosis Angina: - This is not an ACS given chronic stable symptoms -Stress test negative Acute diastolic CHF exac: - S/p diuresis now euvolemic -DC with Lasix 20 mg daily Permanent Atrial Fibrillation - Continue low dose metoprolol, rate is controlled - Continue Eliquis for AC Hypertension - He had been taking olmesartan/HCTZ combination pill prescribed in [place] as an outpatient which I will discontinue as will likely need more potent diuretic hence have prescribed losartan 25 and Lasix, to new home metoprolol, BP stable with this regimen Hyponatremia: - Now resolved BPH: - Continue flomax Patient Condition: Good Hospital Course Patient is a 76-year-old male with a reported history of hypertension and BPH as well as to 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 Patient was seen by cardiology and a stress test was done and was negative. Troponins were also negative, 2D echo showed EF 45% and patient was felt to have some mild CHF exacerbation which improved with Lasix. For the A- Fib patient was continued on metoprolol and was started on Xarelto. She was felt to be stable for discharge and on day of discharge patient's vitals, labs and physical exam stable. Patient's daughter was told that he will be started on Xarelto and hence she stopped some aspirin in addition she was told that his blood pressure medication regimen will be changed, she understood and acknowledged the change. Home Meds Active Scripts Furosemide* (Lasix*) 20 Mg Tablet, 20 MG PO DAILY, #60 TAB Prov:CHAUNCEY WADEMikki 05/13/17 Losartan Potassium* (Cozaar*) 25 Mg Tablet, 25 MG PO DAILY, #60 TAB 1 Refill Prov:SHERIELIER 05/13/17 Rivaroxaban* (Xarelto*) 20 Mg Tablet, 20 MG PO WITH DINNER, #60 TAB 1 Refill Prov:SHERIELIER 05/13/17 Reported Medications Simvastatin* (Zocor*) 20 Mg Tablet, 20 MG PO QHS, #30 TAB 05/11/17 Indomethacin* (Indocin*) 25 Mg Capsule, 25 MG PO DAILY, CAP 05/11/17 Metoprolol Succinate* (Toprol XL*) 50 Mg Tab.er.24h, 50 MG PO DAILY, #30 TAB 05/11/17 Omeprazole* (Omeprazole*) 20 Mg Capsule.dr, 20 MG PO DAILY 02/16/14 Tamsulosin Hcl* (Flomax*) 0.4 Mg Cap.er.24h, 0.4 MG PO HS, CAP 02/16/14 Discontinued Reported Medications Olmesartan/Hydrochlorothiazide (Benicar Hct 40-25 mg Tablet) 1 Each Tablet, 1 EACH PO DAILY, TAB 05/11/17 Aspirin* (Aspirin* EC) 81 Mg Tablet.dr, 81 MG PO DAILY 02/16/14 Pantoprazole (Protonix) 40 Mg Tabec, 40 MG PO DAILY, TAB 02/16/14 Metoprolol Succinate* (Toprol XL*) 25 Mg Tab.sr.24h, 25 MG PO DAILY, TAB 02/16/14 Atorvastatin Calcium* (Atorvastatin Calcium*) 20 Mg Tablet, 20 MG PO DAILY, TAB 02/16/14 Follow-up Plan Follow-up with PCP 1-2 weeks Primary Care Provider Evan Espinoza Time spent on discharge: > 30 minutes ELIER WADE May 13, 2017 17:38
[2017-05-13] MEDS: RIVAROXABAN 20 MG TABLET PO SCH (18:01)
--- NOTE | 2017-05-13 18:02 | ECORPT ---
DATE OF SERVICE: 05/13/2017 ECHOCARDIOGRAM REFERRING PHYSICIAN: Shira Ulloa MD PROCEDURE: Lexiscan Cardiolite stress test. REASON FOR EVALUATION: Chest pain. PROCEDURE: Mr. Barrera had a successful Lexiscan injection. He had some nonspecific ST-T changes. Blood pressure 134/72. He tolerated the injection well. The imaging portion of the report will be dictated separately. Dictated By: Dieter Merino MD /tom/shanda /Document#: [id number]
== END 2017-05-13 18:50 | disposition home or self-care (01) | DRG 292 ==
LOC: E/R 09:15 → MS4 12:06
PROVIDERS: ADMIT Internal Medicine; ATTEND Internal Medicine
DX: I11.0 Hypertensive heart disease with heart failure (principal); E87.1 Hypo-osmolality and hyponatremia; I48.2 Chronic atrial fibrillation; I50.33 Acute on chronic diastolic (congestive) heart failure; E78.00 Pure hypercholesterolemia, unspecified; J45.909 Unspecified asthma, uncomplicated; N40.0 Benign prostatic hyperplasia without lower urinary tract symptoms; R73.03 Prediabetes; E03.9 Hypothyroidism, unspecified; I25.119 Atherosclerotic heart disease of native coronary artery with unspecified angina pectoris; Z79.82 Long term (current) use of aspirin
CPT/HCPCS: 36415; 71010; 78452; 80053; 83880; 83935; 84300; 84484; 85025; 85610; 85730; 93005; 93017; 93306; 96372; 96374; A9500; A9505; J1940; J2785

== ENCOUNTER 2017-06-09 20:28 | Emergency (ER) | payer OTHER ==
[~2017-06-09] VITALS: Ht 172.7 cm; Wt 81.8 kg
[~2017-06-09 20:28] MED LIST changes: -ASPI-664 PO; -ATOR20TA38 PO; +FURO-110 PO; +INDO25CA25 PO; +LOSA25TA2 PO; -METO25TA7 PO; +METO50TA16 PO; -PANT40TA4 PO; +RIVA20TA PO; +SIMV20TA PO
[2017-06-09 20:33] VITALS: Ht 172.7 cm; Wt 81.8 kg
[2017-06-09] MEDS ORDERED: ONDANSETRON (ODT) 4 MG TAB ODT STA (21:17)
[2017-06-09 21:24] VITALS: BP 137/97; PULSE 82; RESP 23; TEMP 97.8
[2017-06-09] MEDS ORDERED: HYDROCODONE/APAP (5/325) TAB PO ONE (21:30)
[2017-06-09 21:44] LABS: BASOPHIL # 0.1 10^3/ul (0.0-0.1); BASOPHILS % 0.4 % (0.0-2.0); EOSINOPHILS # 0.1 10^3/ul (0.0-0.5); EOSINOPHILS % 0.7 % (0.0-7.0); HEMATOCRIT 41.3 % (42.0-52.0); HEMOGLOBIN 13.6 g/dl (14.0-18.0); LYMPHOCYTES # 1.2 10^3/ul (0.8-2.9); MEAN CORPUSCULAR HEMOGLOBIN 29.4 pg (29.0-33.0); MEAN CORPUSCULAR HGB CONC 32.9 g/dl (32.0-37.0); MEAN CORPUSCULAR VOLUME 89.4 fl (82.0-101.0); MEAN PLATELET VOLUME 10.6 fl (7.4-10.4); MONOCYTE # 1.2 10^3/ul (0.3-0.9); MONOCYTES % 7.9 % (0.0-11.0); NEUTROPHILS % 79.1 % (39.0-77.0); PLATELET COUNT 235 10^3/UL (140-415); RED BLOOD COUNT 4.62 10^6/ul (4.70-6.10); RED CELL DISTRIBUTION WIDTH 15.8 % (11.5-14.5); WHITE BLOOD COUNT 14.9 10^3/ul (4.8-10.8)
[2017-06-09 21:59] LABS: INR 1.01; PROTIME 13.3 Sec (12.2-14.2)
[2017-06-09 22:00] LABS: PARTIAL THROMBOPLASTIN TIME 32.6 Sec (25.0-35.0)
[2017-06-09 22:09] LABS: ALANINE AMINOTRANSFERASE 45 IU/L (13-69); ALBUMIN 3.8 g/dl (3.3-4.9); ALBUMIN/GLOBULIN RATIO 1.18; ALKALINE PHOSPHATASE 88 IU/L (42-121); ANION GAP 14 (8-16); ASPARTATE AMINO TRANSFERASE 25 IU/L (15-46); BILIRUBIN,INDIRECT 0.5 mg/dl (0-1.1); BILIRUBIN,TOTAL 0.5 mg/dl (0.2-1.3); BLOOD UREA NITROGEN 30 mg/dl (7-20); CALCIUM 8.9 mg/dl (8.4-10.2); CARBON DIOXIDE 21 mmol/L (21-31); CHLORIDE 99 mmol/L (97-110); CREATININE 1.06 mg/dl (0.61-1.24); GLUCOSE 149 mg/dl (70-220); POTASSIUM 4.6 mmol/L (3.5-5.1); SODIUM 129 mmol/L (135-144)
[2017-06-09 22:18] LABS: B-TYPE NATRIURETIC PEPTIDE 6250 PG/ML (0-450)
[2017-06-09 22:22] LABS: TROPONIN-I < 0.012 ng/ml (0.00-0.12)
[2017-06-09] MEDS ORDERED: FUROSEMIDE 40 MG INJ IV ONE (23:00)
[2017-06-10] MEDS ORDERED: DOCU-144 PO (00:05)
[2017-06-10] MEDS ORDERED: HYDR-906 PO (00:05)
[2017-06-10] MEDS ORDERED: ONDA4TAB14 PO (00:05)
--- NOTE | 2017-06-10 00:12 | RADRPT ---
PROCEDURE: Portable chest x-ray. CLINICAL INDICATION: 76 years of age, male. Chest pain. TECHNIQUE: Portable AP view of the chest. COMPARISON: May 11, 2017 FINDINGS: Tortuous aorta. Enlarged cardiopericardial silhouette. Cardiomediastinal contours are stable. Decreased lung volumes with vascular crowding versus mild edema. Bibasilar lung opacities likely rep resent atelectasis. Negative for pleural effusion or pneumothorax. No acute bony abnormality. IMPRESSION: Decreased lung volumes with vascular crowding versus mild edema. Bibasilar lung opacities likely rep resent atelectasis. Enlarged cardiopericardial silhouette as before. RPTAT: HCTS Physician Brooke Date Time Electronically viewed and signed by Daljit Gracia Physician on 06/10/2017 00:12 /
--- NOTE | 2017-06-10 00:17 | ERD ---
ER Documentation Chief Complaint Date/Time DATE: 06/10/17 TIME: 00:12 Chief Complaint lower back pain x 4 days s/p lifting object out of car. HPI 76-year-old male who presents with family member. The patient has a history of atrial fibrillation, CHF with an EF of 45% to presents the emergency room with lumbar back pain. He states approximately 3-4 days ago he was lifting a heavy object out of a car and strained his lumbar back. Since then he describes paraspinal lumbar back pain that is throbbing and dull and worse with movement. He denies any bowel or bladder incontinence and/or retention. The patient also incidentally notes that he has had worsening lower extremity swelling for approximately 2 months. Worse over the last several days. No exertional shortness of breath but occasional shortness of breath when laying flat. He denies chest pain ROS All systems reviewed and are negative except as per history of present illness. Medications Home Meds Active Scripts Docusate Sodium* (Colace*) 100 Mg Capsule, 100 MG PO TID Y for CONSTIPATION, # 30 CAP Prov:JAVI SNOW MD 06/10/17 Ondansetron (Ondansetron Odt) 4 Mg Tab.rapdis, 4 MG PO Q6H Y for NAUSEA AND/OR VOMITING, #10 TAB Prov:JAVI SNOW MD 06/10/17 Hydrocodone/Acetaminophen (Red Jacket 5-325 Tablet) 1 Each Tablet, 1 TAB PO Q6H Y for PAIN, #7 TAB Prov:JAVI SNOW MD 06/10/17 Furosemide* (Lasix*) 20 Mg Tablet, 20 MG PO DAILY, #60 TAB Prov:ELIER WADE 05/13/17 Losartan Potassium* (Cozaar*) 25 Mg Tablet, 25 MG PO DAILY, #60 TAB 1 Refill Prov:ELIER WADE 05/13/17 Rivaroxaban* (Xarelto*) 20 Mg Tablet, 20 MG PO WITH DINNER, #60 TAB 1 Refill Prov:ELIER WADE 05/13/17 Reported Medications Simvastatin* (Zocor*) 20 Mg Tablet, 20 MG PO QHS, #30 TAB 05/11/17 Indomethacin* (Indocin*) 25 Mg Capsule, 25 MG PO DAILY, CAP 05/11/17 Metoprolol Succinate* (Toprol XL*) 50 Mg Tab.er.24h, 50 MG PO DAILY, #30 TAB 05/11/17 Omeprazole* (Omeprazole*) 20 Mg Capsule.dr, 20 MG PO DAILY 02/16/14 Tamsulosin Hcl* (Flomax*) 0.4 Mg Cap.er.24h, 0.4 MG PO HS, CAP 02/16/14 Allergies Allergies: Coded Allergies: No Known Allergy (Verified , 06/09/17) PMhx/Soc Medical and Surgical Hx: pt denies Surgical Hx History of Surgery: Yes (2 X HERNIA SURGERIES) Anesthesia Reaction: No Hx Neurological Disorder: No Hx Respiratory Disorders: Yes (SOB ASTHMA) Hx Cardiac Disorders: Yes (HTN) Hx Psychiatric Problems: No Hx Miscellaneous Medical Probl: Yes (CHOLESTEROL, OA, DM) Hx Alcohol Use: Yes Hx Substance Use: No Hx Tobacco Use: No Smoking Status: Never smoker FmHx Family History: No diabetes Physical Exam Vitals Vital Signs Date Time Temp Pulse Resp B/P Pulse Ox O2 Delivery O2 Flow Rate FiO2 06/09/17 21:24 97.8 82 23 137/97 95 Room Air 06/09/17 20:33 98.9 84 18 165/92 94 Physical Exam General: Well developed, well nourished, no acute distress Head: Normocephalic, atraumatic Eyes: Pupils equally reactive, EOM intact ENT: Moist mucous membranes Neck: Supple, no lymphadenopathy Respiratory: Lungs clear bilaterally, no distress Cardiovascular: RRR, no murmurs, rubs, or gallops Abdominal: Soft, non-tender, non-distended, no peritoneal signs Back: No midline tenderness deformities or step-offs, reproducible paraspinal soft tissue tenderness : Deferred MSK: Bilateral pedal edema approximately 2+, 2+ dorsalis pedis and posterior tibial pulses Neurologic: Alert and oriented, moving all extremities, normal speech, no focal weakness, no cerebellar signs Skin: No rash Psych: Normal mood Result Diagram: 06/09/17212106/09/172121 Results 24 hrs Laboratory Tests Test 06/09/17 21:22 White Blood Count 14.910^3/ul Red Blood Count 4.6210^6/ul Hemoglobin 13.6g/dl Hematocrit 41.3% Mean Corpuscular Volume 89.4fl Mean Corpuscular Hemoglobin 29.4pg Mean Corpuscular Hemoglobin Concent 32.9g/dl Red Cell Distribution Width 15.8% Platelet Count 50667^3/UL Mean Platelet Volume 10.6fl Neutrophils % 79.1% Lymphocytes % 8.0% Monocytes % 7.9% Eosinophils % 0.7% Basophils % 0.4% Nucleated Red Blood Cells % 0.0/100WBC Neutrophils # (Manual) 11.810^3/ul Lymphocytes # 1.210^3/ul Monocytes # 1.210^3/ul Eosinophils # 0.110^3/ul Basophils # 0.110^3/ul Nucleated Red Blood Cells # 0.010^3/ul Prothrombin Time 13.3Sec Prothrombin Time Ratio 1.0 INR International Normalized Ratio 1.01 Activated Partial Thromboplast Time 32.6Sec Sodium Level 129mmol/L Potassium Level 4.6mmol/L Chloride Level 99mmol/L Carbon Dioxide Level 21mmol/L Anion Gap 14 Blood Urea Nitrogen 30mg/dl Creatinine 1.06mg/dl Glucose Level 149mg/dl Calcium Level 8.9mg/dl Total Bilirubin 0.5mg/dl Direct Bilirubin 0.00mg/dl Indirect Bilirubin 0.5mg/dl Aspartate Amino Transf (AST/SGOT) 25IU/L Alanine Aminotransferase (ALT/SGPT) 45IU/L Alkaline Phosphatase 88IU/L Troponin I < 0.012ng/ml B-Type Natriuretic Peptide 6250PG/ML Total Protein 7.0g/dl Albumin 3.8g/dl Globulin 3.20g/dl Albumin/Globulin Ratio 1.18 Current Medications Medications (Trade) Dose Ordered Sig/Sharmila Route PRN Reason Start Time Stop Time Status Last Admin Dose Admin Acetaminophen/ Hydrocodone Bitart (Red Jacket (5/325)) 1 tab ONCE ONCE PO 06/09/17 21:30 06/09/17 21:31 DC 06/09/17 21:46 Ondansetron HCl (Zofran Odt) 4 mg ONCE STAT ODT 06/09/17 21:17 06/09/17 21:18 DC 06/09/17 21:46 Furosemide (Lasix) 40 mg ONCE ONCE IV 06/09/17 23:00 06/09/17 23:01 DC 06/09/17 22:50 Procedures/MDM EKG, MONITORS, & DIAGNOSTIC IMAGING: EKG: I reviewed and interpreted a 12-lead EKG. Rhythm: A. fib rate controlled ectopy: None Intervals: No abnormalities ST segments: No elevations or depressions T waves: No contiguous inversions Chest x-ray: I reviewed and interpreted a 1 view of the chest Mediastinum: No enlargement Cardiac silhouette: cardiomegaly Airspace: No significant interstitial process, unchanged from baseline Bones: No evidence of fracture LAB INTERPRETATION: BMP around 5000 consistent with the patient's baseline, negative troponin MEDICAL DECISION MAKING: The patient presents with 2 main complaints. First is lumbar back pain. The patient's low back pain is unlikely related to serious etiology. The patient exhibits no clinical signs or symptoms and has no history or risk factors to suggest cauda equina, cord compression, epidural abscess, epidural hematoma, acute aortic aneurysm or dissection. This is very consistent with lumbar strain. No indication for x-ray or CT imaging. The patient has a nonfocal neurologic exam. He was given Red Jacket with control pain. The second complaint is peripheral edema that seems to be subacute over the past 2 months. I believe this is consistent with the patient's known heart failure. He has no evidence of significant heart failure or volume overload. No signs or symptoms concerning for cardiac ischemia. ER COURSE: The patient's laboratory testing shows baseline BNP. Chest x-ray shows no evidence of significant volume overload. The patient is resting comfortably. He was given 40 of Lasix IV. He has outpatient follow-up with his senior relationship manager within 1-2 weeks. Given that the patient does not exhibit any signs of acute or decompensated congestive heart failure do not feel he warrants hospitalization. Outpatient management would be appropriate. I kept the patient and/or family informed of laboratory and diagnostic imaging results throughout the emergency room course. DISPOSITION PLAN: We discussed follow up with the patient's primary care doctor within 24 to 48 hours as needed. We also discussed return to the emergency room for worsening symptoms or worsening condition. Outpatient referral: Cardiology Discharge Medications: Red Jacket 5 mg, Zofran, Colace Departure Diagnosis: Primary Impression: Lumbar strain Encounter type: initial encounter Qualified Code: S39.012A - Strain of lumbar region, initial encounter Additional Impressions: Peripheral edema Congestive heart failure Congestive heart failure type: diastolic Congestive heart failure chronicity : chronic Qualified Code: I50.32 - Chronic diastolic congestive heart failure Condition: Stable Patient Instructions: Self-Care for Low Back Pain, Peripheral Edema, Bilateral Additional Instructions: Call your primary care doctor TOMORROW for an appointment during the next 1 WEEK.Tell the junior legal secretary that you were referred from this facility.See the doctor sooner or return here if your condition worsens before your appointment time. JAVI SNOW MD Jun 10, 2017 00:17
== END 2017-06-10 01:24 | disposition home or self-care (01) ==
LOC: E/R 20:28
DX: S39.012A Strain of muscle, fascia and tendon of lower back, initial encounter (principal); R60.0 Localized edema; I50.32 Chronic diastolic (congestive) heart failure; J45.909 Unspecified asthma, uncomplicated; I10 Essential (primary) hypertension; E11.9 Type 2 diabetes mellitus without complications; X50.0XXA Overexertion from strenuous movement or load, initial encounter; Y92.9 Unspecified place or not applicable; Z79.01 Long term (current) use of anticoagulants
CPT/HCPCS: 36415; 71010; 80053; 83880; 84484; 85025; 85610; 85730; 93005; 96374; 99285; J1940